=== PATIENT | female | born 1955 | race Caucasian/White ===

== ENCOUNTER 2017-06-02 12:19 | Emergency (ER) | payer BC ==
[~2017-06-02] VITALS: Ht 157.5 cm; Wt 56.8 kg
[2017-06-02] MEDS ORDERED: LISI10TA4 PO (12:28)
[2017-06-02] MEDS ORDERED: ASPI1TAB PO (12:28)
[2017-06-02] MEDS ORDERED: MORPHINE 4 MG/ML 1ML SYRINGE IV PRN (12:45)
[2017-06-02] MEDS ORDERED: ONDANSETRON 4MG/2ML VIAL (J2405) IV ONE (12:45)
--- NOTE | 2017-06-02 13:52 | REP ---
Right hip and AP pelvis: Right hip two views: Mineralization and joint space are normal. There is no fracture or dislocation. There are no calcifications or foreign bodies. Impression: Negative right hip. AP pelvis: There is no pelvic fracture. The sacroiliac articulations and hip articulations are unremarkable. There are pelvic calcifications, likely phleboliths. Impression: Essentially negative AP pelvis. Signed by Elver Colon MD 06/02/2017 01:42 P
--- NOTE | 2017-06-02 15:01 | REP ---
CT RIGHT HIP: Axial CT images of the right hip were performed with sagittal and coronal reconstruction images. There is no acute fracture or dislocation. No intrinsic osseous pathology is seen. Visualized soft tissue structures appear unremarkable. IMPRESSION: No evidence of acute fracture or dislocation. Signed by Elver Contreras MD 06/02/2017 04:51 P
[2017-06-02] MEDS ORDERED: IBUP-1022 PO (15:41)
[2017-06-02 15:49] VITALS: BP 147/67
== END 2017-06-02 15:51 | disposition home or self-care (01) ==
LOC: M ED 12:19
DX: S70.01XA Contusion of right hip, initial encounter (principal); W54.1XXA Struck by dog, initial encounter; Y92.019 Unspecified place in single-family (private) house as the place of occurrence of the external cause; Y93.89 Activity, other specified; Y99.8 Other external cause status; I10 Essential (primary) hypertension; Z79.82 Long term (current) use of aspirin; Z79.899 Other long term (current) drug therapy; Z88.1 Allergy status to other antibiotic agents; Z88.2 Allergy status to sulfonamides
CPT/HCPCS: 73502; 73700; 96374; 96375; 99284; J2405

== ENCOUNTER → 2023-03-20 | Outpatient (CLI) | payer BC, MEDICARE ==
[~2023-03-20] MED LIST: ASPI81TA26 PO; IBUP-1022 PO; LISI10TA22 PO
[2023-03-20 13:17] LABS: CHOLESTEROL RISK RATIO 2.04 (<5); HDL CHOLESTEROL 93.6 MG/DL (>40); LDL CHOLESTEROL 84.6 MG/DL (<100); NON-HDL-C 97.4 MG/DL
== END ==
LOC: M WUC 08:47
DX: E78.5 Hyperlipidemia, unspecified (principal); Z82.49 Family history of ischemic heart disease and other diseases of the circulatory system; I10 Essential (primary) hypertension; I47.1 Supraventricular tachycardia; R93.1 Abnormal findings on diagnostic imaging of heart and coronary circulation